=== PATIENT | female | born 1955 | race Caucasian/White ===

== ENCOUNTER → 2019-02-16 09:22 | Day surgery (SDC) | payer BC ==
[~2019-02-16 09:22] MED LIST: Bacitracin OINTMENT* 0.5% 0.5 oz TUBE ONE; Buffered Lidocaine 1% SYRIN* 1 ML/SYRINGE INTRADERM ONE; Dexamethasone IV* 4 MG/ML 1 ML (4 MG) ONE; Lactated Ringers 1000 ML Bag* 1,000 ML IV SCH; Lidocaine 1% w EPI 1:100,000* MDV 20 ML VIAL ONE; Lidocaine 4% TOPICAL* 50 ML TOP.SOLN ONE; Midazolam* 1 MG/ML 5 ML VIAL (5 MG) ONE; Naloxone* 0.4 MG/ML 1 ML VIAL IV PRN; Ondansetron INJ* 2 MG/ML VIAL IV PRN; Oxymetazoline 0.05% NASAL SPR* 15 ML BTL ONE; Propofol* 10 MG/ML 20 ML BTL ONE; Rocuronium* 10 MG/ML VIAL ONE; Sugammadex * 200 MG/2 ML VIAL IV PUSH ONE; fentaNYL* 50 MCG/ML 2 ML VIAL (100 MCG VIAL) IV PRN; fentaNYL* 50 MCG/ML 2 ML VIAL (100 MCG VIAL) ONE
--- NOTE | 2019-02-16 14:10 | OP ---
DATE OF OPERATION: 02/16/19 - SDS DATE OF : 55 SURGEON: Rome Sharp MD PRE-OP DIAGNOSIS: Chronic sinusitis. POST-OP DIAGNOSIS: Chronic sinusitis. OPERATIVE PROCEDURE: Bilateral endoscopic sinus surgery with maxillary antrostomies with debridement and anterior ethmoidectomies under general endotracheal anesthesia. COMPLICATIONS: None. DISPOSITION: Good. SPECIMENS: Left and right sinus contents. DESCRIPTION OF PROCEDURE: The patient was taken to the operating room and placed in the supine position on the operating table. General anesthesia was induced and she was orotracheally intubated. Nose was packed with cottonoids impregnated with oxymetazoline and 4% lidocaine. She was draped for the surgery. After several minutes, the packs were removed and under endoscopic guidance, surgery was performed. Her uncinate process and middle turbinates were injected with 1% lidocaine with 1:100,000 epinephrine. The middle turbinate was medialized and the middle meatus was packed with the packs. After several minutes, these were removed. The curved seeker was used to find the ostium of the maxillary sinus. The sickle knife was used to make an anterior cut on the uncinate process. This was then grasped and removed. The backbiters in various places were used to debride the ostium to widen this. The anterior ethmoid was entered and a small antrostomy was made into this area. This was repeated bilaterally. Stammberger Sinu-Foam was placed lateral to the middle turbinates. The patient tolerated the procedure well, no complications, and transferred to the recovery room in stable condition. [id number]/[facility] #: [id number] [facility] CENTERDemond
[2019-02-16 14:47] VITALS: BP 145/92
== END | disposition home or self-care (01) ==
LOC: OR 09:22
PROVIDERS: ATTEND Otolaryngology
DX: J32.8 Other chronic sinusitis (principal); F41.8 Other specified anxiety disorders; M33.90 Dermatopolymyositis, unspecified, organ involvement unspecified
CPT/HCPCS: 88305; A9270-GY; J1100; J2250; J2704; J3010